=== PATIENT | female | born 1985 | race Caucasian/White ===

== ENCOUNTER 2016-10-22 12:30 | Emergency (ER) | payer OTHER ==
[~2016-10-22] VITALS: Ht 170.2 cm; Wt 92.0 kg
[~2016-10-22 12:30] MED LIST: AUGMENTIN875 MG PO; BACTRIM,SEPT1 TABLET PO; CLARITIN,ALAVAR10 MG PO; COLACE100 MG PO; FLEXERIL10 MG PO; FLEXERIL5 MG PO; GUAIFENESIN600 M1 PO; HYDROCODON-ACE1 EAC7 PO; INDOCIN25 MG PO; MIRALAX255 GM PO; MOBIC7.5 MG PO; MOTRIN800 MG PO; NAPROSYN500 MG PO; NOHOMEMEDS; NORCO 5/3251 TABLET PO; PERCOCET 5/31 TABLET PO; PERIOGARD480 ML MM; PREDNISONE10 MG PO; PREDNISONE20 MG PO; TYLENOL EXTRA500 MG PO; TYLENOL WITH C1 EACH PO; ULTRAM50 MG PO; VALIUM5 MG PO; VALTREX1000 MG PO; VICODIN 5-3001 EACH PO
[2016-10-22] MEDS ORDERED: ZITHROMAX Z-PA250 MG PO (14:02)
[2016-10-22] MEDS ORDERED: VENTOLIN HFA18 GM IH (14:03)
[2016-10-22] MEDS ORDERED: PREDNISONE20 MG PO (14:09)
[2016-10-22 14:46] VITALS: BP 107/77
== END 2016-10-22 14:48 | disposition home or self-care (01) ==
LOC: EME 12:30
DX: J01.90 Acute sinusitis, unspecified (principal)
CPT/HCPCS: 71020; 94640; 99281; 99283; J7512

== ENCOUNTER → 2017-08-16 19:06 | Emergency (ER) | payer OTHER ==
[~2017-08-16] VITALS: Ht 170.2 cm; Wt 90.1 kg
[~2017-08-16 19:06] MED LIST changes: +VENTOLIN HFA18 GM IH; +ZITHROMAX Z-PA250 MG PO
[2017-08-16 19:13] VITALS: BP 136/88
== END | disposition left against medical advice (07) ==
LOC: EME 19:06
DX: S51.851A Open bite of right forearm, initial encounter (principal); Z53.21 Procedure and treatment not carried out due to patient leaving prior to being seen by health care provider
CPT/HCPCS: 73090

== ENCOUNTER 2017-12-30 14:29 | Emergency (ER) | payer OTHER ==
[~2017-12-30] VITALS: Ht 167.6 cm; Wt 92.6 kg
[2017-12-30 14:40] VITALS: BP 107/78
[2017-12-30] MEDS ORDERED: PERCOCET 5/31 TABLET PO (15:18)
[2017-12-30] MEDS ORDERED: PEN-VEE K,VEET500 MG PO (15:18)
== END 2017-12-30 15:33 | disposition home or self-care (01) ==
LOC: EME 14:29
DX: K02.9 Dental caries, unspecified (principal); F17.210 Nicotine dependence, cigarettes, uncomplicated; Z88.6 Allergy status to analgesic agent
CPT/HCPCS: 99281; 99283